=== PATIENT | male | born 1950 | race Caucasian/White ===

== ENCOUNTER 2024-04-04 09:31 | Outpatient (CLI) | payer MEDICARE, SELFPAY | END 2024-04-04 09:32 | disposition home or self-care (01) | LOC: NFLDREF 09:33 | PROVIDERS: PCP Family Medicine; Visit Provider Otolaryngology | DX: R51.9 Headache, unspecified (principal) | CPT/HCPCS: 80076 ==

== ENCOUNTER 2024-04-10 09:48 | Outpatient (CLI) | payer MEDICARE, BC, SELFPAY ==
--- NOTE | 2024-04-10 10:00 | CRLHL7_ITS ---
For Patients: As a result of the Century Cures Act, medical imaging exams and procedure reports are released immediately into your electronic medical record. You may view this report before your referring provider. If you have questions, please contact your health care provider. Indication: SINUSITIS, FACIAL PAIN FROM TOP OF TEETH TO TOP OF HEAD ON RT SIDE Technique: Performed without IV contrast Comparison: MRI 04/18/2023 Findings: Frontal sinuses: Clear. Ethmoid sinuses: Clear. Maxillary sinuses: Mild mucosal thickening is present within both maxillary sinuses. There are small mucous retention cysts bilaterally measuring up to 10 millimeters. The maxillary sinus drainage pathways are patent on both sides. Sphenoid sinuses: Clear, including both sphenoethmoidal recesses. Nasal Cavity: Slight leftward deviation of the posterior nasal septum. Paradoxical turn of the middle turbinates. Prominent kenneth bullosa within the left middle turbinate is present measuring approximately 1.2 cm. Smaller kenneth bullosa right middle turbinate. Mild chronic changes to the temporomandibular joints. Generalized cortical atrophy. Impression: 1. Mild bilateral maxillary sinus disease. 2. Slight leftward curvature of the nasal septum. Bilateral middle turbinate kenneth bullosa. Please note that all CT scans at this facility use dose modulation, iterative reconstruction, and/or weight-based dosing when appropriate to reduce radiation dose to as low as reasonably achievable. Dictated by Vincent Squires MD @ 04/10/2024 12:28:26 PM (Electronically Signed)
== END 2024-04-10 09:49 | disposition home or self-care (01) ==
LOC: CT 09:53
PROVIDERS: PCP Family Medicine; Visit Provider Otolaryngology
DX: R51.9 Headache, unspecified (principal); J32.0 Chronic maxillary sinusitis; J34.2 Deviated nasal septum; J33.8 Other polyp of sinus
CPT/HCPCS: 70486